=== PATIENT | male | born 1935 | race African-American/Black ===

== ENCOUNTER 2017-08-21 19:32 | Emergency (ER) | payer MEDICARE ==
[~2017-08-21] VITALS: Ht 170.2 cm; Wt 72.6 kg
[2017-08-21] MEDS ORDERED: ONDANSETRON ODT 4 MG TAB.RAPDIS SL ONE (19:45)
[2017-08-21] MEDS ORDERED: HYDROCODONE/APAP 5-325MG TABLET PO ONE ×2 (19:45→21:00)
--- NOTE | 2017-08-21 19:52 | NUR ---
Patient BIB [id number] for c/o LEFT hip pain. Patient states that he was attempting to get out of bed to use the restroom on TUESDAY (2 nights [employer]) when he stumbled and fell to the floor. Patient states he did not hit his head, pain to his left hip with movement, and reports being able to ambulate to restroom since the fall. To room 5A, [facility] performed MSE.
--- NOTE | 2017-08-21 19:55 | NUR ---
Patient to Radiology for CT/XRAY via gurney.
[2017-08-21 20:00] LABS: BASOPHILS % (AUTO) 0.5 % (0.0-2.0); EOSINOPHILS # (AUTO) 0.2 K/uL (0.0-0.7); EOSINOPHILS % (AUTO) 2.5 % (0.0-7.0); HEMATOCRIT 44.8 % (40-50); HEMOGLOBIN 15.1 G/DL (14.0-18.0); LYMPHOCYTES # (AUTO) 1.2 K/UL (0.8-4.8); LYMPHOCYTES % (AUTO) 14.6 % (20.5-51.5); MEAN CORPUSCULAR HEMOGLOBIN 31.3 UUG (27.0-31.0); MEAN CORPUSCULAR HGB CONC 34 g/dL (32.0-37.0); MEAN CORPUSCULAR VOLUME 93.1 FL (82.0-92.0); MONOCYTES # (AUTO) 0.7 K/UL (0.1-1.30); MONOCYTES % (AUTO) 8.6 % (0.0-11.0); NEUTROPHILS # (AUTO) 6.3 K/UL (1.8-8.9); NEUTROPHILS % (AUTO) 73.8 % (38.5-71.5); PLATELET COUNT (AUTO) 155 K/UL (150-450); RED BLOOD CELL COUNT(AUTO) 4.81 MIL/UL (4.7-6.1); WHITE BLOOD COUNT (AUTO) 8.4 K/UL (4.0-11.2)
--- NOTE | 2017-08-21 20:04 | NUR ---
Patient's at bedside.
[2017-08-21] MEDS ORDERED: HYDROCODONE/APAP 5-325MG TABLET ONE ×2 (20:07→21:16)
[2017-08-21] MEDS ORDERED: ONDANSETRON ODT 4 MG TAB.RAPDIS ONE (20:07)
[2017-08-21 20:08] LABS: CARBON DIOXIDE 31 mmol/L (21-32); CHLORIDE 105 mmol/L (98-107); CREATININE 1.2 mg/dL (0.6-1.3); GLUCOSE 105 mg/dL (74-106); POTASSIUM 3.9 mmol/L (3.5-5.1); UREA NITROGEN, BLOOD 19 mg/dL (7-18)
--- NOTE | 2017-08-21 20:16 | NUR ---
Patient returned from Radiology.
--- NOTE | 2017-08-21 21:33 | NUR ---
Call placed to [facility] for D/C home, ETA 45 minutes.
--- NOTE | 2017-08-21 22:22 | NUR ---
Patient discharged to home in stable conditon via [facility]. Written and verbal after care instructions given. Patient verbalizes understanding of instructions.
[2017-08-21 22:23] VITALS: BP 131/83
== END 2017-08-21 22:25 | disposition home or self-care (01) ==
LOC: ER 19:33 → EDBD 19:33 → ER 22:25
DX: S30.0XXA Contusion of lower back and pelvis, initial encounter (principal); S70.02XA Contusion of left hip, initial encounter; Z79.01 Long term (current) use of anticoagulants; W18.30XA Fall on same level, unspecified, initial encounter; Y93.89 Activity, other specified; Y92.89 Other specified places as the place of occurrence of the external cause; Y99.8 Other external cause status
CPT/HCPCS: 36415; 72170; 73551; 73700; 80048; 85025; 85730; 99285; A4663; Q0162